=== PATIENT | female | born 1980 | race Caucasian/White ===

== ENCOUNTER 2024-02-20 09:13 | Outpatient (CLI) | payer OTHER, SELFPAY ==
--- NOTE | ~2024-02-20 | MM_ITS ---
EXAMINATION: MM screening sandra BI w [facility] HISTORY: Screening mammogram TECHNIQUE: Craniocaudal and mediolateral oblique 3-D tomosynthesis images were obtained and synthetic 2-D images were generated. CAD analysis was submitted and interpreted. COMPARISON: No prior mammogram is available for comparison at this institution. BREAST PARENCHYMAL COMPOSITION:Not Dense. There are scattered areas of fibroglandular density. FINDINGS: No suspicious mass, calcification, or architectural distortion are identified in either arnold ast to suggest malignancy. There has been no suspicious interval change. IMPRESSION: No mammographic evidence of malignancy. Recommend routine screening mammography in one year. BI-RADS Category 1: Negative Reviewed, dictated and finalized at location . [employer]
== END 2024-02-20 09:14 | disposition home or self-care (01) ==
PROVIDERS: PCP Family Medicine; Visit Provider Obstetrics & Gynecology
DX: Z12.31 Encounter for screening mammogram for malignant neoplasm of breast (principal)
CPT/HCPCS: 77063; 77067

== ENCOUNTER 2024-06-18 13:45 | Emergency (ER) | payer OTHER, SELFPAY ==
[2024-06-18 13:50] VITALS: BP 153/98; PULSE 75; RESP 14; TEMP 37; O2SAT 99
--- NOTE | 2024-06-18 14:17 | ED_ITS ---
HPI - URI/Sore Throat General Chief Complaint: Upper Respiratory Infection Stated Complaint: sore throat/stuffy nose Time Seen by Provider: 06/18/24 14:17 History of Present Illness HPI Narrative: 44 y/o female presented for c/o diarrhea, nasal congestion and drainage, and cough x1 week. Pt states at onset she had sore throat which has resolved. Denies sob, wheezing, abdominal pain, nausea, vomiting, fever or lethargy. Taking Mucinex but does not like how it makes her feel. States she is in recovery and avoids most otc meds. Related Data Allergies Allergy/AdvReac Type Severity Reaction Status Date / Time No Known Allergies Allergy Verified 06/18/24 13:47 Review of Systems Review of Systems: CONSTITUTIONAL: Denies body aches, fever, chills, or sweats. EYES: Denies visual changes, redness, or discharge. ENT: reports rhinorrhea, congestion, denies sore throat or otalgia. CARDIOVASCULAR: Denies chest pain, palpitations, or edema. RESPIRATORY: reports cough Denies dyspnea. GASTROINTESTINAL: Denies abdominal pain, nausea, vomiting, reports diarrhea. SKIN: Denies rash NEUROLOGIC: Denies headache [facility] Surgical History Surgical History History of tonsillectomy Exam Narrative: GENERAL: well-appearing, no acute distress. EYES: conjunctivae clear ENT: Mucous membranes moist. TM pearly reynolds with normal light reflex bilaterally; no tragal tenderness. Oropharynx erythematous without lesions. Tonsils absent No drooling, no hoarseness, no trismus, uvula midline. No tripod positioning, hot potato voice, or soft palate swelling. NECK: Supple. No lymphadenopathy CHEST: Clear to auscultation, breath sounds equal. No respiratory distress, speaks in full sentences. HEART: Regular rate and rhythm. No murmur heard. SKIN: Warm, dry, no rash. NEURO: Alert and oriented x3. Course Course Emergency Course: Patient is aware of diagnosis, understands and agrees to treatment plan. Anticipatory guidance given. Patient agrees to follow-up as directed and is aware of reasons to seek care at the emergency department. Portions of this record may have been created with voice recognition software Level of Care: Express Care Visit Vital Signs Vital signs: Vital Signs Temperature 98.6 F 06/18/24 13:50 Pulse Rate 75 06/18/24 13:50 Respiratory Rate 14 06/18/24 13:50 Blood Pressure 153/98 H 06/18/24 13:50 Pulse Oximetry 99 06/18/24 13:50 Temperature 98.6 F 06/18/24 13:50 Pulse Rate 75 06/18/24 13:50 Respiratory Rate 14 06/18/24 13:50 Blood Pressure 153/98 H 06/18/24 13:50 Pulse Oximetry 99 06/18/24 13:50 MDM - URI/Sore Throat MDM Narrative Medical decision making narrative: neg flu and covid result reviewed with pt. Advise supportive treatments. Patient is appropriate for outpatient treatment and follow-up. Differential Diagnosis Differential diagnosis: Likely upper respiratory infection, viral infection and pharyngitis Lab Data Labs: Lab Results 06/18/24 Range/Units 14:05 POC Influenza A Ag Negative (Negative) POC Influenza B Ag Negative (Negative) POC SARS CoV-2 Ag Negative (Negative) Discharge Plan Discharge Clinical Impression: Viral infection Patient Disposition: Home Condition: Stable Instructions: Viral Syndrome (ED) Additional Instructions: Flu COVID negative Take medication as directed Recommendations: Stay hydrated. Take small sips of fluid containing electrolytes frequently. Avoid fatty, greasy, fried or spicy foods. Limit dairy until symptoms are improved. [id number] Imodium according to package directions, also Recommend probiotic such as align or lactobacillus to help with symptoms. Flonase spray and Zyrtec (or Claritin/Vani) Tylenol 1000mg every 8 hours as needed for pain You should go to the hospital if you experience persistent nausea and vomiting that does not resolve and does not allow you to tolerate any food or fluids, fevers, increasing abdominal pain, persistent diarrhea, dizziness, fainting, or for any other concerns. Follow up with primary care provider in 3 days. Patient Language: Kazakh Prescriptions: New prednisone 20 mg tablet 40 mg PO DAILY 4 Days Qty: 8 0RF Follow-up/Referrals: PHYSICIAN,COMPOUNDING AND FINISHING SUPERVISOR [Primary Care Provider] - Stand Alone Forms: Work/School Release IP Time of Disposition: 14:39
[2024-06-18 14:30] LABS: EDCOVIDSCREEN Negative (Negative); EDINFLUASCREEN Negative (Negative); EDINFLUBSCREEN Negative (Negative)
== END 2024-06-18 14:45 | disposition home or self-care (01) ==
PROVIDERS: Emergency Provider Nurse Practitioner Family
DX: B34.9 Viral infection, unspecified (principal); Z20.822 Contact with and (suspected) exposure to COVID-19
CPT/HCPCS: 87426; 87804; 99203; G0463

== ENCOUNTER 2024-07-17 18:11 | Emergency (ER) | payer OTHER, SELFPAY ==
[2024-07-17 18:18] VITALS: BP 140/82; PULSE 72; RESP 16; TEMP 37.1; O2SAT 100
--- NOTE | 2024-07-17 18:35 | ED.SKABFB ---
HPI - Skin/Abscess/Foreign Bdy General Chief complaint: Skin/Abscess/Foreign Body Stated complaint: Rash Time Seen by Provider: 07/17/24 18:23 Source: patient and RN notes reviewed Mode of arrival: ambulatory Limitations: no limitations History of Present Illness HPI narrative: Patient presents today complaining of a burning and tingling rash surrounding her mouth. Rash appeared today but the burning and tingling have been present for the past 2 days. Rash is primarily on the right side of the face. Pain radiates to the chin. Patient has no history of orolabial herpes simplex. 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 Denies any additional symptoms. Related Data Allergies Allergy/AdvReac Type Severity Reaction Status Date / Time No Known Allergies Allergy Verified 07/17/24 18:14 Review of Systems Review of Systems: CONSTITUTIONAL: Denies body aches, fever, chills, or sweats. EYES: Denies visual changes, redness, or discharge. ENT: Denies rhinorrhea, congestion, sore throat, or otalgia. CARDIOVASCULAR: Denies chest pain, palpitations, or edema. RESPIRATORY: Denies cough or dyspnea. GASTROINTESTINAL: Denies abdominal pain, nausea, vomiting, or diarrhea. GENITOURINARY: Denies dysuria or hematuria. SKIN: Facial rash MUSCULOSKELETAL: Denies back pain, joint pain, or myalgia. NEUROLOGIC: Denies headache, numbness, tingling, or weakness. PSYCH: Denies depression or anxiety. [facility] Surgical History Surgical History (Reviewed 07/17/24 @ 18:36 by Selena Romo, [facility], [place], ) History of tonsillectomy Comments At time of signature, I have reviewed and agree with nursing past medical, surgical, social and family history unless otherwise noted. Please see nursing chart for further information. There is no relevant family history pertinent to the presenting complaint Exam Narrative: GENERAL: Well-appearing, well-nourished, and in no acute distress. HEAD: Normocephalic, atraumatic. EYES: EOMI. No redness or drainage. Conjunctivae normal. ENT: Mucous membranes pink and moist. Nares clear. No rhinorrhea. NECK: Normal AROM. CHEST: No respiratory distress. EXTREMITIES: Normal range of motion. No edema. SKIN: Warm, dry. Capillary refill normal. Normal skin turgor. Erythematous rash with tiny vesicles in patches to the right upper and lower circumoral area extending into the lip. Some of the areas have a yellow hue as well. Tender to palpation. NEURO: No focal deficits. Alert and oriented x3. Gait steady. PSYCH: Normal affect. No signs of depression or anxiety. Course Course Level of Care: Express Care Visit Vital Signs Vital signs: Vital Signs Temperature 98.8 F 07/17/24 18:18 Pulse Rate 72 07/17/24 18:18 Respiratory Rate 16 07/17/24 18:18 Blood Pressure 140/82 07/17/24 18:18 Pulse Oximetry 100 07/17/24 18:18 Oxygen Delivery Room Air 07/17/24 18:18 Temperature 98.8 F 07/17/24 18:18 Pulse Rate 72 07/17/24 18:18 Respiratory Rate 16 07/17/24 18:18 Blood Pressure 140/82 07/17/24 18:18 Pulse Oximetry 100 07/17/24 18:18 Oxygen Delivery Room Air 07/17/24 18:18 Reviewed MDM - Skin/Abscess/Foreign Bdy MDM Narrative Medical decision making narrative: Patient will be treated with acyclovir for herpes simplex. Due to the did yellow hue of some areas she will also be treated with some topical mupirocin to cover for developing impetigo. Patient agrees with plan. Anticipatory guidance given. Differential Diagnosis Differential diagnosis: Likely viral exanthem, cellulitis, impetigo, contact dermatitis and other (Herpes simplex, [id number]) Critical Care Time Critical Care Time Critical Care Time: No Discharge Plan Discharge Clinical Impression: Oral herpes simplex infection Patient Disposition: Home Condition: Stable Instructions: Oral Herpes Infection (ED) Additional Instructions: Please take the Valtrex as prescribed. Use the mupirocin ointment around the outside of your lips to help prevent secondary bacterial infection. Take Tylenol or ibuprofen for pain if needed. Follow-up with your PCP in 1 week if symptoms have not resolved, or sooner if symptoms worsen. Your blood pressure was elevated above 120/80 today at Urgent Care. This puts you above the threshold for follow up. Please schedule a followup visit with your personal physician as soon as possible, for further evaluation and treatment. Even blood pressure exceeding 120/80 may indicate pre-hypertension. Patient Language: Welsh Prescriptions: New valacyclovir 1 gram tablet 1,000 mg PO Q12H 7 Days Qty: 14 0RF mupirocin 2 % ointment 1 applic topical BID 7 Days Qty: 22 0RF Follow-up/Referrals: PHYSICIAN,QUALIFICATIONS EXAMINER [Primary Care Provider] - Time of Disposition: 18:34
== END 2024-07-17 18:38 | disposition home or self-care (01) ==
PROVIDERS: Emergency Provider Nurse Practitioner
DX: B00.1 Herpesviral vesicular dermatitis (principal)
CPT/HCPCS: 99213; G0463